=== PATIENT | female | born 1970 | race Caucasian/White ===

== ENCOUNTER 2017-09-07 07:22 | Emergency (ER) | payer SELFPAY | END 2017-09-07 09:44 | disposition home or self-care (01) | LOC: ERS 07:22 | DX: J02.9 Acute pharyngitis, unspecified (principal); I10 Essential (primary) hypertension; G56.00 Carpal tunnel syndrome, unspecified upper limb; J45.909 Unspecified asthma, uncomplicated; F31.9 Bipolar disorder, unspecified; F41.9 Anxiety disorder, unspecified; Z87.891 Personal history of nicotine dependence; Z79.899 Other long term (current) drug therapy | CPT/HCPCS: 87081; 87430; 99283 ==

== ENCOUNTER 2018-10-05 19:13 | Emergency (ER) | payer SELFPAY ==
[2018-10-05] MEDS ORDERED: diphenhydrAMINE 25 MG CAP ONE (19:58)
[2018-10-05] MEDS ORDERED: predniSONE 20 MG TAB ONE (19:58)
[2018-10-05] MEDS ORDERED: Famotidine 20 MG TAB ONE ×2 (19:58→20:05)
== END 2018-10-05 20:00 | disposition home or self-care (01) ==
LOC: SCSER 19:13
DX: T78.40XA Allergy, unspecified, initial encounter (principal); J45.909 Unspecified asthma, uncomplicated; I10 Essential (primary) hypertension; F90.9 Attention-deficit hyperactivity disorder, unspecified type; F41.9 Anxiety disorder, unspecified; F31.9 Bipolar disorder, unspecified; Z87.891 Personal history of nicotine dependence
CPT/HCPCS: 99282; J7506

== ENCOUNTER 2018-11-12 07:31 | Emergency (ER) | payer OTHER, SELFPAY ==
[2018-11-12] MEDS ORDERED: Bacitracin Zinc 1 Packet ONE (07:52)
--- NOTE | 2018-11-12 10:02 | RAD ---
LEFT KNEE 4 VIEWS: Date: 11/12/18 HISTORY: Trauma. Fall. COMPARISON: None. FINDINGS: There is small joint effusion. On the external rotated exam view, there is possible avulsion fracture of lateral tibial plateau. Medial compartment osteophytes are present. IMPRESSION: Joint effusion with possible small avulsion fracture of lateral tibial plateau seen on the oblique ex ternal rotated view can be sequelae of ACL injury. POS: [facility]
== END 2018-11-12 08:21 | disposition home or self-care (01) ==
LOC: SCSER 07:31
DX: S93.402A Sprain of unspecified ligament of left ankle, initial encounter (principal); S80.02XA Contusion of left knee, initial encounter; S60.212A Contusion of left wrist, initial encounter; J45.909 Unspecified asthma, uncomplicated; I10 Essential (primary) hypertension; F90.9 Attention-deficit hyperactivity disorder, unspecified type; F31.9 Bipolar disorder, unspecified; Z87.891 Personal history of nicotine dependence; Z79.899 Other long term (current) drug therapy; W17.89XA Other fall from one level to another, initial encounter

== ENCOUNTER 2018-12-19 16:06 | Emergency (ER) | payer SELFPAY | END 2018-12-19 17:55 | disposition home or self-care (01) | LOC: SCSER 16:06 | DX: J30.9 Allergic rhinitis, unspecified (principal); R51 Headache; I10 Essential (primary) hypertension; J45.909 Unspecified asthma, uncomplicated; F31.9 Bipolar disorder, unspecified; F41.9 Anxiety disorder, unspecified; F90.9 Attention-deficit hyperactivity disorder, unspecified type; Z87.891 Personal history of nicotine dependence; Z79.899 Other long term (current) drug therapy | CPT/HCPCS: 99283 ==

== ENCOUNTER 2019-01-11 14:39 | Emergency (ER) | payer SELFPAY | END 2019-01-11 14:47 | disposition E | LOC: ERS 14:39 | DX: I46.9 Cardiac arrest, cause unspecified (principal); R04.2 Hemoptysis; J45.909 Unspecified asthma, uncomplicated; F90.9 Attention-deficit hyperactivity disorder, unspecified type; F41.9 Anxiety disorder, unspecified; F31.9 Bipolar disorder, unspecified; Z87.891 Personal history of nicotine dependence | CPT/HCPCS: 92950 ==